=== PATIENT | male | born 1965 | race Caucasian/White ===

== ENCOUNTER → 2016-11-15 | Outpatient (CLI) | payer BC ==
[~2016-11-15] MED LIST: ALBUAER2 INH; IBUP-1050 PO; LSN/10125 PO; PRED10TA PO; TRAM200T16 PO
== END | disposition home or self-care (01) ==
LOC: C.LAB 07:18
PROVIDERS: ATTEND Nutritionist
DX: R53.83 Other fatigue (principal)